=== PATIENT | female | born 1960 | race Two or more races ===

== ENCOUNTER 2018-10-16 09:58 | Outpatient (CLI) | payer OTHER | END 2018-10-16 10:07 | disposition home or self-care (01) | LOC: MAMO-SONO 09:58 | DX: N60.11 Diffuse cystic mastopathy of right breast (principal) ==

== ENCOUNTER 2019-09-21 09:54 | Outpatient (CLI) | payer OTHER | END 2019-09-21 10:05 | disposition home or self-care (01) | LOC: MAMO-SONO 09:54 | DX: N60.11 Diffuse cystic mastopathy of right breast (principal) ==

== ENCOUNTER 2020-10-05 09:29 | Outpatient (CLI) | payer OTHER | END 2020-10-05 09:41 | disposition home or self-care (01) | LOC: MAMO-SONO 09:29 | PROVIDERS: ATTEND Obstetrics & Gynecology | DX: N60.11 Diffuse cystic mastopathy of right breast (principal); N64.59 Other signs and symptoms in breast ==

== ENCOUNTER → 2021-10-09 | Outpatient (CLI) | payer OTHER | END | disposition home or self-care (01) | LOC: MAMO-SONO 09:00 | PROVIDERS: ATTEND Obstetrics & Gynecology | DX: N60.11 Diffuse cystic mastopathy of right breast (principal) ==

== ENCOUNTER 2022-11-12 10:18 | Outpatient (CLI) | payer OTHER | END 2022-11-12 10:26 | disposition home or self-care (01) | LOC: MAMO-SONO 10:18 | PROVIDERS: ATTEND Obstetrics & Gynecology | DX: N60.11 Diffuse cystic mastopathy of right breast (principal) ==

== ENCOUNTER 2025-01-25 10:13 | Outpatient (CLI) | payer OTHER | END 2025-01-25 10:18 | disposition home or self-care (01) | LOC: MAMO-SONO 10:13 | PROVIDERS: ATTEND Obstetrics & Gynecology | DX: N60.11 Diffuse cystic mastopathy of right breast (principal); Z12.31 Encounter for screening mammogram for malignant neoplasm of breast ==